=== PATIENT | female | born 1945 | race Caucasian/White ===

== ENCOUNTER 2016-08-11 21:53 | Emergency (ER) | payer OTHER ==
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
[2016-08-11] MEDS ORDERED: TETANUS,DIPHTHERIA,PERTUSSIS 1 EA SYG IM ONE (22:46)
[2016-08-11] MEDS ORDERED: SULFA/TRIMETH 800/160 (DS) TAB 1 EA TAB PO ONE (22:46)
[2016-08-11 23:54] VITALS: BP 108/79; TEMP 98.2; O2SAT 98
== END 2016-08-11 23:15 | disposition home or self-care (01) ==
LOC: ER 21:53
DX: S01.81XA Laceration without foreign body of other part of head, initial encounter (principal); Z23 Encounter for immunization; W01.0XXA Fall on same level from slipping, tripping and stumbling without subsequent striking against object, initial encounter; Y92.481 Parking lot as the place of occurrence of the external cause